=== PATIENT | male | born 1950 | race Caucasian/White ===

== ENCOUNTER → 2016-08-20 | Outpatient (CLI) | payer MEDICARE, OTHER ==
[~2016-08-20] MED LIST: ASPIRIN LO-DOSE81 MG PO; COLCRYS0.6 MG PO; CPAP INH; DAILY MULTIPLE1 EAC1 PO; PEPCID20 MG PO; TUMS REGULAR ST1 TAB PO; ZYLOPRIM100 MG PO; ZYLOPRIM300 MG PO
== END | disposition disaster alternative care site (69) ==
LOC: GRAD 09:00
DX: M25.551 Pain in right hip (principal); Z98.890 Other specified postprocedural states

== ENCOUNTER → 2016-08-27 | Outpatient (CLI) | payer MEDICARE, OTHER | END | disposition disaster alternative care site (69) | LOC: GNJRC 10:20 | DX: Z01.812 Encounter for preprocedural laboratory examination (principal); M16.11 Unilateral primary osteoarthritis, right hip ==